=== PATIENT | male | born 1960 | race Caucasian/White ===

== ENCOUNTER 2017-08-19 21:29 | Emergency (ER) | payer OTHER ==
[~2017-08-19] VITALS: Ht 177.8 cm; Wt 72.6 kg
[2017-08-19 21:31] VITALS: BP_SYST 176
--- NOTE | 2017-08-19 21:36 | NUR ---
Placed in hallway.
--- NOTE | 2017-08-19 21:36 | NUR ---
Dr Pinzon at bedside examining patient
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
--- NOTE | 2017-08-19 21:38 | NUR ---
ER Dr. Pinzon examining patient.
[2017-08-19] MEDS ORDERED: cloNIDine HCL 0.1 MG TABLET PO ONE (21:45)
[2017-08-19] MEDS ORDERED: cloNIDine HCL 0.1 MG TABLET ONE (22:08)
--- NOTE | 2017-08-19 22:40 | NUR ---
Patient given written and verbal discharge instructions and verbalizes understanding. ER MD discussed with patient the results and treatment provided. Patient in stable condition. ID arm band removed. No Rx given. Patient educated on pain management and to follow up with PMD. Pain Scale 0/10. Opportunity for questions provided and answered. Medication side effect fact sheet provided.
[2017-08-19 22:53] VITALS: BP_SYST 152
== END 2017-08-19 22:53 ==
LOC: SED 21:29
DX: I10 Essential (primary) hypertension (principal); Z04.1 Encounter for examination and observation following transport accident; V89.2XXA Person injured in unspecified motor-vehicle accident, traffic, initial encounter; Y93.89 Activity, other specified; Y92.488 Other paved roadways as the place of occurrence of the external cause; Y99.8 Other external cause status
CPT/HCPCS: 99283